=== PATIENT | male | born 1975 | race African-American/Black ===

== ENCOUNTER 2018-04-23 01:51 | Emergency (ER) | payer OTHER ==
[2018-04-23] MEDS: HYDROcodone/APAP 5/325MG 1 TAB TABLET PO (02:41)
[2018-04-23] MEDS: DOXYCYCLINE HYCLATE 100 MG TABLET PO (02:42)
[2018-04-23] MEDS: ONDANSETRON ODT 4 MG TAB.RAPDIS. PO (02:43)
[2018-04-23] MEDS: KETOROLAC 30 MG/ML INJ. IM (02:44)
== END 2018-04-23 03:23 | disposition home or self-care (01) ==
LOC: ER 01:51
DX: J32.0 Chronic maxillary sinusitis (principal)
CPT/HCPCS: 70450; 70486; 96372; 99284-25; J1885; Q0162

== ENCOUNTER 2019-03-04 22:43 | Emergency (ER) | payer OTHER ==
[~2019-03-04] VITALS: Ht 182.9 cm; Wt 87.5 kg
[~2019-03-04 22:43] MED LIST: DOXY100C2 PO; HYDR-3164 PO; ONDA4TAB10 SL
[2019-03-04] MEDS ORDERED: IBUPROFEN 400 MG TABLET. PO ONE (23:45)
[2019-03-04 23:47] LABS: BASO % 1 % (0-3); EOS # 0.1 x10^3/uL (0.0-0.7); EOS % 2 % (0-3); HEMATOCRIT 38.3 % (39.0-53.0); HEMOGLOBIN 12.9 g/dL (13.0-17.5); LYMPH % 37 % (24-48); MEAN CORPUSCULAR HEMOGLOBIN 33 pg (25-35); MEAN CORPUSCULAR HGB CONC 34 g/dL (31-37); MEAN CORPUSCULAR VOLUME 96 fL (79-100); MONO # 0.5 x10^3/uL (0.0-1.1); MONO % 10 % (0-9); NEUT # 2.7 x10^3uL (1.8-7.7); NEUT % 51 % (31-73); PLATELET COUNT 213 x10^3/uL (140-400); RED BLOOD COUNT 3.97 x10^6/uL (4.30-5.70); RED CELL DISTRIBUTION WIDTH 13.7 % (11.5-14.5); WHITE BLOOD COUNT 5.3 x10^3/uL (4.0-11.0)
[2019-03-04 23:57] LABS: CALCIUM 8.8 mg/dL (8.5-10.1); GFR 99.2; POTASSIUM 3.7 mmol/L (3.5-5.1)
--- NOTE | 2019-03-05 00:32 | RAD ---
PA and lateral chest. HISTORY: Chest pain PA and lateral views were taken of the chest. Lungs are clear. Heart is normal in size without heart failure. There is no effusion. IMPRESSION: 1. No acute chest disease. Electronically signed by: Celso Mina MD (03/05/2019 12:29 AM) [facility]
--- NOTE | 2019-03-05 01:08 | PHYS DOC ---
Past Medical History Past Medical History: No Pertinent History Past Surgical History: No Surgical History Additional Past Surgical Histo: Left foot surgery Alcohol Use: Heavy Drug Use: Marijuana Adult General Chief Complaint Chief Complaint: CHEST PAIN HPI HPI Patient is a 43 year old male who presents the ER for evaluation of chest pain. Patient reports constant, sharp, 3-4/10, no previous episodes, no trauma, positional, left axillary chest pain for the past 3 days. Nonprogressive. No lower extremity edema/pain. No history of previous DVTs. Does report recent travel history in the past 1 week via car. No SOB/WOB. No change with OTC Tums. Review of Systems Review of Systems Constitutional: Denies fever or chills [] Eyes: Denies change in visual acuity, redness, or eye pain [] HENT: Denies nasal congestion or sore throat [] Respiratory: Denies cough or shortness of breath [] Cardiovascular: +chest pain, no palpitations, no LE edema GI: Denies abdominal pain, nausea, vomiting, bloody stools or diarrhea [] : Denies dysuria or hematuria [] Musculoskeletal: Denies back pain or joint pain [] Integument: Denies rash or skin lesions [] Neurologic: Denies headache, focal weakness or sensory changes [] Endocrine: Denies polyuria or polydipsia [] All other systems were reviewed and found to be within normal limits, except as documented in this note. Current Medications Current Medications Current Medications Medications (Trade) Dose Ordered Sig/Anne-Marie Start Time Stop Time Status Last Admin Dose Admin Ibuprofen (Motrin) 800 mg 1X ONCE 03/04/19 23:45 03/04/19 23:46 DC 03/04/19 23:45 800 MG Allergies Allergies Allergies Coded Allergies Type Severity Reaction Last Updated Verified No Known Drug Allergies 09/20/16 No Physical Exam Physical Exam Constitutional: Well developed, well nourished, HENT: Normocephalic, atraumatic Eyes: PERRLA, EOMI, Neck: Normal range of motion, no tenderness, supple, no stridor. [] Cardiovascular:Heart rate regular rhythm, no murmur [] Lungs & Thorax: Bilateral breath sounds clear to auscultation, moderate tenderness to the lateral aspect of left pectoralis muscle and mid axillary area. No overlying skin changes, no crepitus, no focal tenderness. [] Abdomen: Bowel sounds normal, soft, no tenderness, no masses, no pulsatile masses. [] Skin: Warm, dry, no erythema, no rash. [] [] Extremities: No tenderness, no cyanosis, no clubbing, ROM intact, no edema. [] Neurologic: Alert and oriented X 3, no focal deficits noted. [] Psychologic: Affect normal, judgement normal, mood normal. [] Current Patient Data Vital Signs Vital Signs Date Time Temp Pulse Resp B/P (MAP) Pulse Ox O2 Delivery O2 Flow Rate FiO2 03/04/19 23:10 98.6 68 22 131/80 (97) 100 Room Air 98.6 Lab Values Laboratory Tests Test 03/04/19 23:35 White Blood Count 5.3 x10^3/uL (4.0-11.0) Red Blood Count 3.97 x10^6/uL (4.30-5.70) L Hemoglobin 12.9 g/dL (13.0-17.5) L Hematocrit 38.3 % (39.0-53.0) L Mean Corpuscular Volume 96 fL (79-100) Mean Corpuscular Hemoglobin 33 pg (25-35) Mean Corpuscular Hemoglobin Concent 34 g/dL (31-37) Red Cell Distribution Width 13.7 % (11.5-14.5) Platelet Count 213 x10^3/uL (140-400) Neutrophils (%) (Auto) 51 % (31-73) Lymphocytes (%) (Auto) 37 % (24-48) Monocytes (%) (Auto) 10 % (0-9) H Eosinophils (%) (Auto) 2 % (0-3) Basophils (%) (Auto) 1 % (0-3) Neutrophils # (Auto) 2.7 x10^3uL (1.8-7.7) Lymphocytes # (Auto) 2.0 x10^3/uL (1.0-4.8) Monocytes # (Auto) 0.5 x10^3/uL (0.0-1.1) Eosinophils # (Auto) 0.1 x10^3/uL (0.0-0.7) Basophils # (Auto) 0.0 x10^3/uL (0.0-0.2) D-Dimer (Laura) < 0.27 ug/mlFEU Sodium Level 141 mmol/L (136-145) Potassium Level 3.7 mmol/L (3.5-5.1) Chloride Level 105 mmol/L (98-107) Carbon Dioxide Level 27 mmol/L (21-32) Anion Gap 9 (6-14) Blood Urea Nitrogen 14 mg/dL (8-26) Creatinine 1.0 mg/dL (0.7-1.3) Estimated GFR (Cockcroft-Gault) 99.2 Glucose Level 95 mg/dL (70-99) Calcium Level 8.8 mg/dL (8.5-10.1) Troponin I Quantitative < 0.017 ng/mL (0.000-0.055) Laboratory Tests 03/04/19 23:35 Laboratory Tests 03/04/19 23:35 EKG EKG 2251: Normal sinus rhythm, no significant ST segment changes. Heart rate 61. Radiology/Procedures Radiology/Procedures CXR : IMPRESSION: 1. No acute chest disease. Electronically signed by: Celso Mina MD (03/05/2019 12:29 AM) [facility][] Course & Med Decision Making Course & Med Decision Making Pertinent Labs and Imaging studies reviewed. (See chart for details) []0107: Pt with very reproducible symptoms on exam. He has a very reassuring troponin in the setting of chest pain lasting greater than 6 hours. EKG with no acute findings. Chest x-ray with no acute findings. Patient feels improved after ibuprofen in the ER. Labs, x-ray discussed in detail with patient and family member at bedside. Patient with a low heart score and appropriate for outpatient follow-up. Discussed continue ibuprofen for symptom relief. ER return precautions given. Patient verbalized understanding. All questions answered. Dragon Disclaimer Dragon Disclaimer This electronic medical record was generated, in whole or in part, using a voice recognition dictation system. Departure Departure Impression: Primary Impression: Chest pain Disposition: 01 HOME, SELF-CARE Condition: STABLE Referrals: NO PCP (PCP) Patient Instructions: Chest Pain (Nonspecific) Additional Instructions: Thank you for coming to [facility]. Please read the attached handouts. Please follow-up with your primary care physician. Please take ibuprofen 800 mg 3 times a day with food for pain. Return to the ER if your symptoms worsen or you have any other concerns. BELLA FREDERICK DO Mar 05, 2019 01:08
[2019-03-05 02:00] VITALS: BP 123/65
== END 2019-03-05 02:00 | disposition home or self-care (01) ==
LOC: ER 22:43
DX: R07.89 Other chest pain (principal); F10.20 Alcohol dependence, uncomplicated; Y90.9 Presence of alcohol in blood, level not specified
CPT/HCPCS: 36415; 71046; 80048; 84484; 85025; 85379; 99285-25

== ENCOUNTER → 2019-09-10 | Outpatient (CLI) | payer OTHER ==
--- NOTE | 2019-09-10 12:15 | KCIC ---
EXAMINATION: Magnetic resonance imaging (MRI) of the cervical spine without contrast 09/10/2019 10:15 AM HISTORY: Radicular neck pain. TECHNIQUE: Multiplanar multi-weighted MRI of the cervical spine was performed without intravenous contrast using the standard cervical spine protocol. Contrast information: None administered COMPARISON: None available. FINDINGS: The alignment of the cervical spine is normal. Vertebral bodies demonstrate normal signal intensity on all sequences. No acute fracture is identified; however, if trauma is suspected, a CT scan would be a more sensitive examination for fractures. The craniocervical junction is normal. The visualized portions of the skull base and the posterior fossa are normal. The spinal cord demonstrates normal signal intensity on all sequences. Mild disc desiccation is noted at C3-C4. No soft tissue abnormality is identified. Normal signal voids are present in the vertebral arteries. C2-C3: The disk is normal in configuration. There is no facet arthropathy. There is no uncovertebral joint disease. There is no neuroforaminal stenosis. There is no spinal canal stenosis. C3-C4: Mild disc bulge. There is no facet arthropathy. There is no uncovertebral joint disease. There is mild left neuroforaminal stenosis. There is no spinal canal stenosis. C4-C5: The disk is normal in configuration. There is no facet arthropathy. There is no uncovertebral joint disease. There is no neuroforaminal stenosis. There is no spinal canal stenosis. C5-C6: Mild disc bulge. There is no facet arthropathy. There is no uncovertebral joint disease. There is no neuroforaminal stenosis. There is no spinal canal stenosis. C6-C7: Mild disc bulge. There is no facet arthropathy. There is mild left uncovertebral joint disease. There is mild left neuroforaminal stenosis. There is no spinal canal stenosis. C7-T1: Mild disc bulge with right central disc protrusion. There is no facet arthropathy. There is no uncovertebral joint disease. There is mild right neuroforaminal stenosis. There is no spinal canal stenosis. IMPRESSION: Mild degenerative changes of the cervical spine as described in detail above. Electronically signed by: Katie Yao MD (09/10/2019 12:12 PM) [id number]
== END | disposition home or self-care (01) ==
LOC: KCIC MRI 10:36
PROVIDERS: ATTEND Physical Medicine & Rehabilitation
DX: M50.13 Cervical disc disorder with radiculopathy, cervicothoracic region (principal); M48.02 Spinal stenosis, cervical region; M12.88 Other specific arthropathies, not elsewhere classified, other specified site; G89.29 Other chronic pain
CPT/HCPCS: 72141